=== PATIENT | male | born 1970 | race Caucasian/White ===

== ENCOUNTER 2019-08-15 10:56 | Outpatient (RCR) | payer OTHER, SELFPAY ==
[2018-04-29 13:17] VITALS: BMI 27.7
--- NOTE | 2019-08-16 15:20 | HP.OTEVAL_ITS ---
Patient's Visit Information DOV SAUCEDO is a 48 year old M, referred to Occupational Therapy by Out of Town Doctor, with a diagnosis of hemophilia/ hamstring. 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 Pt states while playing softball he ran about 5 steps and was unable to cont. sharp pain in his leg- took factor on wed. and again on wednesday- pain med helps pt and he is currently using crutches for ambulation. states ice and pain med is helping but pt unale to straighten leg out fully, with brusing in groin that noticed this AM. pt has polo wrap on LE to assist with pain mtg and support. - Pain right LE 0 Pain Intensity Range: 0, 8 - Goals Goal:: pt will report pain no greater than 2/10 with ambulation for 600 feet by d/c Goal:: PT and spouse will demo understanding of hemophilia and factor use to assist with mtg. of bleeding disorder by end of 1st session - Rehabilitation General Assessment: pt demo with painful right LE and limited ability to amb. at PLOF. Due to pts hemophilia and need for factor to mtg bleeding. Pt demo need for skilled therapy services to assist in ed. pt with PROM, AAROM and AROM ex, use of ad. eq. to allow for muscle to heal and progress pt to amb increase distance at tessa. to return pt to plof. Today therapist ed. on AAROM of right LE and stressed light stretch nothing that increases pain. therapist ed. pt to stay NWB for week and re-eval at that time. pt and spouse demo understanding and agree to POC. Rehabilitation Potential: Good - Anticipated Interventions A/AAROM/PROM, Ergonomic Education - Visit Plan TEXT: Thank you for the opportunity to evaluate your patient. For Medicare and Medicare HMO plans, please review the plan of care and approve it. It will need to be FAXED BACK to us at [phone] for Medicare purposes. Please let me know if there are questions or concerns regarding this plan of care. Physician Signature: Date:
--- NOTE | 2019-08-17 06:58 | HP.OTEVAL ---
Patient's Visit Information DOV SAUCEDO is a 48 year old M, referred to Occupational Therapy by Out of Town Doctor, with a diagnosis of hemophilia/ hamstring. 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 Pt states while playing softball he ran about 5 steps and was unable to cont. sharp pain in his leg- took factor on wed. and again on wednesday- pain med helps pt and he is currently using crutches for ambulation. states ice and pain med is helping but pt unale to straighten leg out fully, with brusing in groin that noticed this AM. pt has polo wrap on LE to assist with pain mtg and support. - Pain right LE 0 Pain Intensity Range: 0, 8 - Lower Limb Functional Index Lower Extremity Functional Score: 7 - Goals Goal:: pt will report pain no greater than 2/10 with ambulation for 600 feet by d/c Goal:: PT and spouse will demo understanding of hemophilia and factor use to assist with mtg. of bleeding disorder by end of 1st session - Rehabilitation General Assessment: pt demo with painful right LE and limited ability to amb. at PLOF. Due to pts hemophilia and need for factor to mtg bleeding. Pt demo need for skilled therapy services to assist in ed. pt with PROM, AAROM and AROM ex, use of ad. eq. to allow for muscle to heal and progress pt to amb increase distance at tessa. to return pt to plof. Today therapist ed. on AAROM of right LE and stressed light stretch nothing that increases pain. therapist ed. pt to stay NWB for week and re-eval at that time. pt and spouse demo understanding and agree to POC. Rehabilitation Potential: Good - Anticipated Interventions A/AAROM/PROM, Ergonomic Education - Visit Plan TEXT: Thank you for the opportunity to evaluate your patient. For Medicare and Medicare HMO plans, please review the plan of care and approve it. It will need to be FAXED BACK to us at [phone] for Medicare purposes. Please let me know if there are questions or concerns regarding this plan of care. Physician Signature: Date:
--- NOTE | 2019-10-18 14:24 | HP.OT.NRP ---
DOV Rae LEWIS was seen in my office for initial evaluation on 08/16/19. The following Plan of Care was established for this patient: Anticipated Interventions: A/AAROM/PROM, Ergonomic Education This patient was last seen in our office 08/15/19. Pertinent comments regarding their Occupational therapy will appear below: PT was seen for inital eval only- one follow up call was placed and per pts pt was doing much better- no further apt were scheduled. pt d/c at this time due to time lapse in therapy services. At this point I will be discontinuing this patient from occupational therapy. I would be happy to see this patient again in the future if found appropriate by the physician. Thank you! Samreen Cohen, OTR/L, CHT
== END 2019-08-15 19:00 | disposition home or self-care (01) ==
LOC: OT 10:56
PROVIDERS: PCP Family Medicine; Referring Provider Internal Medicine Hematology & Oncology; Visit Provider Internal Medicine Hematology & Oncology
DX: D67 Hereditary factor IX deficiency (principal)
CPT/HCPCS: 97166

== ENCOUNTER → 2023-10-26 | Outpatient (CLI) | payer OTHER, SELFPAY ==
[2023-10-26 17:25] LABS: Hematocrit 44.2 % (40-54); Hemoglobin 14.5 g/dL (13.0-16.5); Mean Corp Hgb Conc 32.8 g/dL (32-36); Mean Corpuscular Hgb 27.8 pg (27.0-32.0); Mean Corpuscular Volume 84.8 fL (80-94); Mean Platelet Vol. 11.3 fl (6.2-12.0); Platelet Count 244 K/mm3 (150-450); Red Blood Count 5.21 M/mm3 (4.6-6.2); White Blood Count 7.2 K/mm3 (4.4-11.0)
[2023-10-26 17:39] LABS: Iron 54 ug/dL (65-175)
== END | disposition home or self-care (01) ==
PROVIDERS: PCP Family Medicine; Referring Provider Internal Medicine Gastroenterology; Visit Provider Internal Medicine Gastroenterology
DX: K92.1 Melena (principal)
CPT/HCPCS: 36415; 83540; 85027